=== PATIENT | male | born 1950 ===

== ENCOUNTER 2021-07-23 11:49 | Inpatient (IN) | payer MEDICARE, MEDICAID ==
[~2021-07-23] VITALS: Ht 172.7 cm; Wt 70.0 kg
[2021-07-23] MEDS ORDERED: CALC-1038 PO (12:18)
[2021-07-23] MEDS ORDERED: DILT-92 PO (12:28)
[2021-07-23] MEDS ORDERED: INSU100I68 SQ (12:28)
[2021-07-23] MEDS ORDERED: DUTA0.5C37 PO (12:28)
[2021-07-23] MEDS ORDERED: FERR-89 PO (12:28)
[2021-07-23] MEDS ORDERED: HYDR-4069 PO (12:28)
[2021-07-23] MEDS ORDERED: TRAZ-257 PO (12:28)
[2021-07-23] MEDS ORDERED: FAMO20 PO (12:28)
[2021-07-23] MEDS ORDERED: TAMS-13 PO (12:28)
[2021-07-23] MEDS ORDERED: INSU100I15 SQ (12:28)
[2021-07-23] MEDS ORDERED: APIX5TAB PO (12:28)
[2021-07-23] MEDS ORDERED: LACT10SO10 PO (12:28)
[2021-07-23] MEDS ORDERED: SODIUM CHLORIDE 0.9% 1,000 ML IV ONE ×4 (12:30→15:30)
[2021-07-23 12:41] LABS: BASOPHILS % (AUTO) 0.2 % (0.0-2.0); EOSINOPHILS % (AUTO) 0.8 % (1.0-6.0); HEMATOCRIT 26.1 % (41-53); HEMOGLOBIN 8.7 g/dL (13.5-17.5); LYMPHOCYTES # (AUTO) 0.5 K/uL (1.0-4.8); LYMPHOCYTES % (AUTO) 2.5 % (22.0-44.0); MEAN CORPUSCULAR HEMOGLOBIN 29.4 pg (26.0-34.0); MEAN CORPUSCULAR HGB CONC 33.4 G/dL (31.0-37.0); MEAN CORPUSCULAR VOLUME 88 fL (80-100); MONOCYTES # (AUTO) 0.4 K/uL (0.1-1.0); MONOCYTES % (AUTO) 1.9 % (2.0-9.0); NEUTROPHILS # (AUTO) 20.4 K/uL (1.8-7.7); PLATELET COUNT (AUTO) 77 K/uL (150-450); RED BLOOD CELL COUNT(AUTO) 2.96 MIL/uL (4.50-5.90); RED CELL DISTRIBUTION WIDTH 17.2 % (11.5-14.5)
[2021-07-23 12:51] LABS: INR 1.4 (0.9-1.1); PROTHROMBIN TIME 15.1 SEC (9.4-11.6)
[2021-07-23 12:56] LABS: ALBUMIN 1.8 g/dL (3.4-5.0); BILIRUBIN,TOTAL 2.9 mg/dL (0.1-1.0); CALCIUM, TOTAL 7.5 mg/dL (8.8-10.5); CREATININE 5.29 mg/dL (0.60-1.30); NEUTROPHILS % (AUTO) 94.6 % (40.0-70.0); TOTAL PROTEIN, SERUM 5.5 g/dL (6.4-8.2)
[2021-07-23 14:01] LABS: COVID AG,FIA SOURCE NASOPHARYNGEAL
[2021-07-23 14:16] LABS: APPEARANCE,URINE TURBID (CLEAR); BILIRUBIN,URINE NEGATIVE (NEGATIVE); GLUCOSE, URINE (UA) NEGATIVE (NEGATIVE); KETONES,URINE NEGATIVE (NEGATIVE); LEUKOCYTE ESTERASE ,URINE LARGE (NEGATIVE); NITRATE,URINE NEGATIVE (NEGATIVE); OCCULT BLOOD,URINE LARGE (NEGATIVE); PH,URINE 5.5 (5.0-8.0); PROTEIN,URINE 30-70 mg/dL (NEGATIVE); UROBILINOGEN,URINE <=1.0 mg/dL (<=1.0)
[2021-07-23] MEDS ORDERED: CefTRIAXone 1 GM/DEXTROSE 50 ML IV ONE (14:30)
[2021-07-23 14:34] LABS: BACTERIA,URINE Moderate /HPF (None Seen); SQUAMOUS EPITHELIAL CELL,UR Few /LPF (None Seen); WBC,URINE >100 /HPF (0-5)
[2021-07-23] MEDS ORDERED: ONDANSETRON HCL 4 MG/2 ML VIAL IVP PRN ×2 (15:30→23:45)
[2021-07-23] MEDS ORDERED: MIDODRINE HCL 5 MG TABLET PO ONE (15:30)
[2021-07-23] MEDS: DEXTROSE 5%-0.9% SODIUM CHL 1,000 ML IV SCH (16:43)
[2021-07-23] MEDS: NOREPINEPHRINE 4 MG/D5%-WATER 250 ML IV PRN (19:52)
[2021-07-23 23:05] VITALS: BP_SYST 113; BP_SYST 89; BP_DIAS 57; BP_DIAS 92
[2021-07-23] MEDS ORDERED: CALCIUM CARBONATE 500 MG TABLET PO PRN (23:30)
[2021-07-23] MEDS ORDERED: IPRATROPIUM BROMIDE 0.5 MG/2.5 ML NEB SOLUTION NEB PRN (23:45)
[2021-07-23] MEDS ORDERED: ZOLPIDEM TARTRATE 5 MG TABLET PO PRN (23:45)
[2021-07-23] MEDS ORDERED: MAGNESIUM HYDROXIDE SUSPENSION 30 ML UDCUP PO PRN (23:45)
[2021-07-23] MEDS ORDERED: ACETAMINOPHEN 325 MG TABLET PO PRN (23:45)
[2021-07-23] MEDS ORDERED: HYDROCODONE/ACETAMINOPHEN 5-325 MG TABLET PO PRN (23:45)
[2021-07-23] MEDS ORDERED: ALBUTEROL SULFATE 2.5 MG/0.5 ML NEB SOLUTION NEB PRN (23:45)
[2021-07-23] MEDS ORDERED: MORPHINE SULFATE 2 MG/ML SYRINGE IVP PRN (23:45)
[2021-07-23] MEDS ORDERED: BISACODYL 10 MG RECTAL RECTAL SUPPOSITORY PR PRN (23:45)
[2021-07-23] MEDS: APIXABAN 5 MG TABLET PO SCH (23:47)
[2021-07-23] MEDS: CefTRIAXone 1 GM/DEXTROSE 50 ML IV SCH (23:50)
[2021-07-23] MEDS ORDERED: SODIUM CHLORIDE 0.9% 250 ML IV ONE (23:56)
[2021-07-23] MEDS: HEPARIN SODIUM,PORCINE 5,000 UNITS/ML VIAL SQ SCH (23:57)
[2021-07-24] VITALS: BP 89/57
[2021-07-24] MEDS: DEXTROSE 5%-0.9% SODIUM CHL 1,000 ML IV SCH ×3 (02:18→21:57)
[2021-07-24 04:00] VITALS: BP 96/70
[2021-07-24 06:49] LABS: CALCIUM, TOTAL 6.8 mg/dL (8.8-10.5); CREATININE 4.81 mg/dL (0.60-1.30); MAGNESIUM 2.8 mg/dL (1.80-2.40); PHOSPHORUS 4.4 mg/dL (2.5-4.9); POTASSIUM 4.5 mmol/L (3.5-5.1)
[2021-07-24] MEDS: DOCUSATE SODIUM 100 MG CAPSULE PO SCH ×2 (07:53→20:13)
[2021-07-24] MEDS: HEPARIN SODIUM,PORCINE 5,000 UNITS/ML VIAL SQ SCH ×2 (07:53→15:35)
[2021-07-24] MEDS: DUTASTERIDE 0.5 MG CAPSULE PO SCH (07:53)
[2021-07-24] MEDS: APIXABAN 5 MG TABLET PO SCH ×2 (07:53→20:13)
[2021-07-24] MEDS: PANTOPRAZOLE SODIUM 40 MG/VIAL IVP SCH (07:53)
[2021-07-24] MEDS: FAMOTIDINE 20 MG TABLET PO SCH (07:53)
[2021-07-24] MEDS: NOREPINEPHRINE 4 MG/D5%-WATER 250 ML IV PRN (07:55)
[2021-07-24 08:00] VITALS: BP 106/51
[2021-07-24 12:00] VITALS: BP 96/49
[2021-07-24 16:00] VITALS: BP 114/40
[2021-07-24 18:53] LABS: BASOPHILS % (AUTO) 0.1 % (0.0-2.0); EOSINOPHILS % (AUTO) 0.5 % (1.0-6.0); HEMATOCRIT 26.3 % (41-53); HEMOGLOBIN 8.5 g/dL (13.5-17.5); LYMPHOCYTES # (AUTO) 0.8 K/uL (1.0-4.8); LYMPHOCYTES % (AUTO) 6.1 % (22.0-44.0); MEAN CORPUSCULAR HGB CONC 32.5 G/dL (31.0-37.0); MEAN CORPUSCULAR VOLUME 89 fL (80-100); MONOCYTES # (AUTO) 0.5 K/uL (0.1-1.0); MONOCYTES % (AUTO) 3.7 % (2.0-9.0); NEUTROPHILS # (AUTO) 11.8 K/uL (1.8-7.7); PLATELET COUNT (AUTO) 57 K/uL (150-450); RED BLOOD CELL COUNT(AUTO) 2.94 MIL/uL (4.50-5.90); RED CELL DISTRIBUTION WIDTH 17.6 % (11.5-14.5)
[2021-07-24 18:54] LABS: NEUTROPHILS % (AUTO) 89.6 % (40.0-70.0)
[2021-07-24 19:01] LABS: ALBUMIN 1.6 g/dL (3.4-5.0); BILIRUBIN,TOTAL 2.4 mg/dL (0.1-1.0); CALCIUM, TOTAL 7.3 mg/dL (8.8-10.5); CREATININE 4.9 mg/dL (0.60-1.30); POTASSIUM 4.5 mmol/L (3.5-5.1); TOTAL PROTEIN, SERUM 5.1 g/dL (6.4-8.2)
[2021-07-24] MEDS ORDERED: FLUO20CA36 PO (19:17)
[2021-07-24] MEDS ORDERED: ALLO100T PO (19:17)
[2021-07-24] MEDS: NOREPINEPHRINE 8 MG/D5%-WATER 250 ML IV PRN (20:21)
[2021-07-24 20:47] VITALS: BP 98/48
[2021-07-24] MEDS ORDERED: TraZODone HCL 100 MG TABLET PO SCH (21:00)
[2021-07-25] VITALS: BP 98/45
[2021-07-25] MEDS: HEPARIN SODIUM,PORCINE 5,000 UNITS/ML VIAL SQ SCH ×3 (00:21→15:39)
[2021-07-25] MEDS: CefTRIAXone 1 GM/DEXTROSE 50 ML IV SCH (00:22)
[2021-07-25 04:00] VITALS: BP 116/52
[2021-07-25 05:47] LABS: BASOPHILS % (AUTO) 0.1 % (0.0-2.0); EOSINOPHILS % (AUTO) 0.3 % (1.0-6.0); HEMATOCRIT 25.3 % (41-53); HEMOGLOBIN 8.3 g/dL (13.5-17.5); LYMPHOCYTES # (AUTO) 0.6 K/uL (1.0-4.8); LYMPHOCYTES % (AUTO) 4.8 % (22.0-44.0); MEAN CORPUSCULAR HEMOGLOBIN 29.4 pg (26.0-34.0); MEAN CORPUSCULAR HGB CONC 32.7 G/dL (31.0-37.0); MEAN CORPUSCULAR VOLUME 90 fL (80-100); MONOCYTES # (AUTO) 0.6 K/uL (0.1-1.0); MONOCYTES % (AUTO) 4.4 % (2.0-9.0); NEUTROPHILS # (AUTO) 11.4 K/uL (1.8-7.7); PLATELET COUNT (AUTO) 67 K/uL (150-450); RED BLOOD CELL COUNT(AUTO) 2.81 MIL/uL (4.50-5.90); RED CELL DISTRIBUTION WIDTH 17.7 % (11.5-14.5)
[2021-07-25 05:52] LABS: NEUTROPHILS % (AUTO) 90.4 % (40.0-70.0)
[2021-07-25 05:54] LABS: ALBUMIN 1.5 g/dL (3.4-5.0); BILIRUBIN,TOTAL 2.1 mg/dL (0.1-1.0); CALCIUM, TOTAL 7.2 mg/dL (8.8-10.5); CREATININE 4.79 mg/dL (0.60-1.30); MAGNESIUM 2.8 mg/dL (1.80-2.40); POTASSIUM 4.7 mmol/L (3.5-5.1); TOTAL PROTEIN, SERUM 5.1 g/dL (6.4-8.2)
[2021-07-25 08:00] VITALS: BP 113/60
[2021-07-25] MEDS: FAMOTIDINE 20 MG TABLET PO SCH (09:00)
[2021-07-25] MEDS: PANTOPRAZOLE SODIUM 40 MG/VIAL IVP SCH (09:26)
[2021-07-25] MEDS: APIXABAN 5 MG TABLET PO SCH (09:26)
[2021-07-25] MEDS: DUTASTERIDE 0.5 MG CAPSULE PO SCH (09:27)
[2021-07-25] MEDS: DOCUSATE SODIUM 100 MG CAPSULE PO SCH (09:27)
[2021-07-25] MEDS: SODIUM CHLORIDE 1 GM TABLET PO SCH ×3 (09:27→18:02)
[2021-07-25] MEDS: DEXTROSE 5%-0.9% SODIUM CHL 1,000 ML IV SCH (09:27)
[2021-07-25] MEDS ORDERED: GLUCAGON,HUMAN RECOMBINANT 1 MG VIAL IM PRN (10:45)
[2021-07-25] MEDS ORDERED: INSULIN LISPRO 100 UNITS/ML SQ PRN (10:45)
[2021-07-25] MEDS ORDERED: SODIUM CHLORIDE 0.9% 1,000 ML IV SCH (10:45)
[2021-07-25] MEDS ORDERED: DEXTROSE 50%-WATER 25 GM/50 ML SYRINGE IVP PRN (10:45)
[2021-07-25] MEDS ORDERED: INSULIN GLARGINE,HUM.REC.ANLOG 100 UNITS/ML SQ SCH (10:45)
[2021-07-25] MEDS: INSULIN LISPRO 100 UNITS/ML SQ PRN ×2 (11:43→17:55)
[2021-07-25 11:52] LABS: GLUCOMETER DEV NAME(LOC) AHU.; GLUCOSE,POINT OF CARE 378 MG/DL (70-110)
[2021-07-25 12:00] VITALS: BP 106/56
[2021-07-25 16:00] VITALS: BP 92/55
[2021-07-25] MEDS: NOREPINEPHRINE 8 MG/D5%-WATER 250 ML IV PRN (18:30)
[2021-07-25 22:56] LABS: GLUCOMETER DEV NAME(LOC) AHU.; GLUCOSE,POINT OF CARE 277 MG/DL (70-110)
== END 2021-07-25 18:50 | disposition short-term general hospital (02) | DRG 871 ==
LOC: EMS 11:49 → ICU 22:54
PROVIDERS: ADMIT Hospitalist; ATTEND Hospitalist
DX: A41.9 Sepsis, unspecified organism (principal); R65.21 Severe sepsis with septic shock; N17.0 Acute kidney failure with tubular necrosis; E87.1 Hypo-osmolality and hyponatremia; N39.0 Urinary tract infection, site not specified; D64.9 Anemia, unspecified; I48.91 Unspecified atrial fibrillation; R79.1 Abnormal coagulation profile; Z96.649 Presence of unspecified artificial hip joint; Z20.822 Contact with and (suspected) exposure to COVID-19; G89.29 Other chronic pain; J44.9 Chronic obstructive pulmonary disease, unspecified; M19.90 Unspecified osteoarthritis, unspecified site; N18.9 Chronic kidney disease, unspecified; I12.9 Hypertensive chronic kidney disease with stage 1 through stage 4 chronic kidney disease, or unspecified chronic kidney disease; E11.22 Type 2 diabetes mellitus with diabetic chronic kidney disease; Z79.899 Other long term (current) drug therapy; Z79.01 Long term (current) use of anticoagulants; Z79.4 Long term (current) use of insulin
CPT/HCPCS: 51702; 70450; 71045; 76770; 80048; 80053; 81001; 82550; 82962; 83605; 83735; 84100; 84484; 85025; 85610; 87040; 87077; 87081; 87086; 87205; 93005; 99291; C9113; G0378; J0696; J1644; J1815; J3490; J7030; J7042; J7050; Q9967; 36415-L1; 36415-TC